=== PATIENT | male | born 1980 | race Caucasian/White ===

== ENCOUNTER 2019-05-16 20:56 | Inpatient (IN) | payer MEDICAID ==
[~2019-05-16] VITALS: Ht 167.6 cm; Wt 94.8 kg
[~2019-05-16 20:56] MED LIST: LEVO500T10 PO
[2019-05-16] MEDS ORDERED: ONDANSETRON 4 MG INJ IV STA (21:28)
[2019-05-16] MEDS ORDERED: ACETAMINOPHEN 325 MG TAB PO ONE (21:30)
[2019-05-16] MEDS ORDERED: LACTATED RINGER'S 1,000 ML IV STA (21:30)
[2019-05-16] MEDS ORDERED: PIPER-TAZO 3.375 GM IV (PMX) 100 ML IVPB STA (22:08)
[2019-05-16] MEDS ORDERED: SODIUM CHLORIDE 0.9% 1L BAG IV* STA (22:08)
[2019-05-16] MEDS ORDERED: SOD CHLORIDE 0.9% 100 ML ONE (22:10)
[2019-05-16] MEDS ORDERED: IODIXANOL LOCM 100 ML BTL ONE (22:10)
[2019-05-17] MEDS ORDERED: ACETAMINOPHEN 325 MG TAB PO PRN ×2 (00:30)
[2019-05-17] MEDS ORDERED: MAGNESIUM SULFATE 2 GM/50 ML 50 ML IVPB ONE (00:30)
[2019-05-17] MEDS ORDERED: ONDANSETRON 4 MG INJ IV PRN ×2 (00:30)
[2019-05-17] MEDS ORDERED: ALBUTEROL/IPRATROPIUM (NEB) 3 ML AMP HHN PRN (00:30)
[2019-05-17] MEDS ORDERED: NACL 0.9% 3 ML SYG IV SCH (00:30)
[2019-05-17] MEDS ORDERED: LORAZEPAM 2 MG INJ IV PRN (00:30)
[2019-05-17] MEDS: SOD CHLORIDE 0.9% 1,000 ML IV SCH ×4 (01:13→16:05)
[2019-05-17 02:30] VITALS: Ht 167.6 cm; Wt 94.8 kg
[2019-05-17 05:00] VITALS: BP 108/70; PULSE 70; RESP 18
[2019-05-17] MEDS: PIPER-TAZO 3.375 GM IV (PMX) 100 ML IVPB SCH ×3 (06:09→17:55)
[2019-05-17 07:49] VITALS: BP 98/62; PULSE 63; RESP 18
[2019-05-17] MEDS: FAMOTIDINE 20 MG INJ IV SCH ×2 (09:18→20:53)
[2019-05-17 11:34] VITALS: BP 103/66; PULSE 64; RESP 18
[2019-05-17] MEDS ORDERED: POTASSIUM CHLORIDE (SR) 20 MEQ TAB PO STA (15:13)
[2019-05-17 16:00] VITALS: BP 103/70; PULSE 69; RESP 18
[2019-05-17 19:18] VITALS: BP 118/88; PULSE 75; RESP 18
[2019-05-18] VITALS (7 sets, daily range): BP systolic 115–139; BP diastolic 77–95; PULSE 64–83; RESP 18–20
[2019-05-18] MEDS: SOD CHLORIDE 0.9% 1,000 ML IV SCH ×4 (00:05→21:58)
[2019-05-18] MEDS: PIPER-TAZO 3.375 GM IV (PMX) 100 ML IVPB SCH ×4 (01:15→18:29)
[2019-05-18] MEDS: FAMOTIDINE 20 MG INJ IV SCH ×2 (08:22→21:58)
[2019-05-18] MEDS ORDERED: MAGNESIUM SULFATE 2 GM/50 ML 50 ML IVPB ONE (10:30)
[2019-05-18] MEDS ORDERED: POTASSIUM PHOSPHATE 40 MEQ in SOD CHLORIDE 0.9% 250 ML IVPB ONE (12:00)
[2019-05-19] MEDS: SOD CHLORIDE 0.9% 1,000 ML IV SCH ×4 (00:05→16:05)
[2019-05-19] MEDS: PIPER-TAZO 3.375 GM IV (PMX) 100 ML IVPB SCH ×4 (01:01→17:31)
[2019-05-19 04:09] VITALS: BP 110/75; PULSE 67; RESP 20
[2019-05-19 07:22] VITALS: BP 130/86; PULSE 65; RESP 20
[2019-05-19] MEDS: FAMOTIDINE 20 MG INJ IV SCH (09:28)
[2019-05-19 12:10] VITALS: BP 125/83; PULSE 62; RESP 20
[2019-05-19 15:27] VITALS: BP 114/75; PULSE 75; RESP 20
== END 2019-05-19 19:10 | disposition home or self-care (01) | DRG 872 ==
LOC: E/R 20:56 → 6WM 23:57
PROVIDERS: ADMIT Internal Medicine; ATTEND Hospitalist
DX: A41.9 Sepsis, unspecified organism (principal); N39.0 Urinary tract infection, site not specified; N17.9 Acute kidney failure, unspecified; K52.9 Noninfective gastroenteritis and colitis, unspecified; E86.0 Dehydration; R55 Syncope and collapse; E87.6 Hypokalemia; R56.9 Unspecified convulsions
CPT/HCPCS: 36415; 70450; 71045; 74177; 80048; 80053; 80307; 81001; 82962; 83605; 83690; 83735; 84100; 84484; 85025; 87086; 93005; 96361; 96374; 96375; J2405; J2543; J3475; J7030; J7050; J7120; Q9967